=== PATIENT | male | born 1970 | race Caucasian/White ===

== ENCOUNTER 2022-05-10 21:15 | Emergency (ER) | payer OTHER ==
[2022-05-10 21:26] VITALS: BP 128/82; PULSE 67; RESP 18; TEMP 97.8; BMI 29.1
[2022-05-10] MEDS ORDERED: ACETAMINOPHEN 500 MG TABLET (FP) ONE (22:45)
[2022-05-10] MEDS ORDERED: ACETAMINOPHEN 500 MG TABLET (FP) PO ONE (22:46)
== END 2022-05-10 23:33 | disposition home or self-care (01) ==
LOC: JERFT 21:15
DX: M79.10 Myalgia, unspecified site (principal); R53.83 Other fatigue; G44.89 Other headache syndrome
CPT/HCPCS: 0241U-QW; 99283-25